=== PATIENT | male | born 1965 | race Caucasian/White ===

== ENCOUNTER → 2018-04-21 | Outpatient (REF) ==
[~2018-04-21] MED LIST: ANORO IH; DOXYCYCLINE 10100 MG PO; LEVAQUIN 5500 MG/TA1 PO; NAPROXEN 3375 MG/TAB PO; NO HOME MEDICATIONS; NORCO 325 MG-51 TAB PO; NORCO 325 MG-7.1 TAB PO; PREDNISONE20 MG PO
== END ==
LOC: COL.CARD 16:22
DX: Z01.818 Encounter for other preprocedural examination (principal)

== ENCOUNTER → 2018-05-06 | Outpatient (CLI) | payer OTHER | LOC: COL.VAS 08:37 | DX: I51.89 Other ill-defined heart diseases (principal); I36.1 Nonrheumatic tricuspid (valve) insufficiency; R55 Syncope and collapse ==